=== PATIENT | female | born 1980 | race Caucasian/White ===

== ENCOUNTER 2019-12-25 13:08 | Inpatient (IN) | payer MEDICAID ==
[~2019-12-25] VITALS: Ht 162.6 cm; Wt 58.1 kg
[2019-12-25] MEDS ORDERED: KETOROLAC 30MG/ML VIAL IV STA (15:21)
[2019-12-25] MEDS ORDERED: SODIUM CHLORIDE 0.9% 1,000 ML IV ONE ×2 (15:21)
[2019-12-25 15:44] LABS: BASOPHILS % 0.6 % (0.0-2.0); EOSINOPHILS % 1.7 % (0.0-5.0); HEMATOCRIT. 42.5 % (36.0-48.0); HEMOGLOBIN. 14.6 g/dL (12.0-16.0); LYMPHOCYTES % 26.3 % (20.0-50.0); MEAN CORPUSCULAR HEMOGLOBIN 30.5 pg (28.0-32.0); MEAN CORPUSCULAR VOLUME 88.7 fL (81.0-99.0); MEAN PLATELET VOLUME 10.8 fl (7.4-10.4); MONOCYTES % 8.4 % (2.0-8.0); PLATELET 263 x1000/uL (130-400); RED BLOOD CELL COUNT 4.79 mill/uL (4.2-5.4); RED CELL DISTRIBUTION WIDTH 13.7 % (11.6-14.6)
[2019-12-25 15:51] LABS: CHLORIDE 98 mEq/L (98-107)
[2019-12-25 15:56] LABS: ETHANOL BLOOD < 10 mg/dL
[2019-12-25 16:07] LABS: HCG SCREEN NEGATIVE
[2019-12-25] MEDS ORDERED: KCL 10MEQ/50ML PREMIX 50 ML IV ONE (17:15)
[2019-12-25] MEDS ORDERED: KETOROLAC 15MG/ML VIAL IV PRN (19:15)
[2019-12-25] MEDS ORDERED: NA PHOS,M-B/NA PHOS,DI-BA ENEMA 118ML PR PRN (19:15)
[2019-12-25] MEDS ORDERED: ONDANSETRON HCL 4MG/2ML INJ IV PRN (19:15)
[2019-12-25] MEDS ORDERED: MAGNESIUM/ALUMINUM HYDROXIDE/SIMETHICONE 30ML UDC PO PRN (19:15)
[2019-12-25] MEDS ORDERED: CLONIDINE 0.1MG TABLET PO PRN (19:15)
[2019-12-25] MEDS ORDERED: IPRATROPIUM/ALBUTEROL 0.5-3(2.5)MG/3ML NEB ORI PRN (19:15)
[2019-12-25] MEDS ORDERED: DEXTROSE 50% WATER 50ML SYRINGE IV PRN ×2 (19:15→19:30)
[2019-12-25] MEDS ORDERED: GUAIFENESIN 200MG/10ML SUGAR FREE UDC PO PRN (19:15)
[2019-12-25] MEDS ORDERED: NITROGLYCERIN 0.4MG TABLET SL SL PRN (19:15)
[2019-12-25 19:33] LABS: CLARITY URINE TURBID (CLEAR); COLOR URINE DK YELLOW (YELLOW); KETONES URINE 4+ (NEGATIVE); LEUKOCYTE ESTERASE URINE NEGATIVE (NEGATIVE); NITRITE URINE NEGATIVE (NEGATIVE); OCCULT BLOOD URINE NEGATIVE (NEGATIVE); PROTEIN URINE 2+ (NEGATIVE); SPECIFIC GRAVITY URINE 1.042 (1.005-1.030)
[2019-12-25 19:45] LABS: *AMPHETAMINES SCREEN URINE NEGATIVE (NEGATIVE); *BARBITURATES SCREEN URINE NEGATIVE (NEGATIVE)
[2019-12-25 19:46] LABS: *BENZODIAZEPINES SCREEN URINE NEGATIVE (NEGATIVE); *COCAINE SCREEN URINE NEGATIVE (NEGATIVE); OPIATES URINE SCREEN NEGATIVE (NEGATIVE); PHENCYCLIDINE URINE SCREEN NEGATIVE (NEGATIVE)
[2019-12-25 19:47] LABS: CANNABINOID URINE SCREEN NEGATIVE (NEGATIVE); METHADONE URINE SCREEN NEGATIVE (NEGATIVE)
[2019-12-25] MEDS ORDERED: LEVOFLOXACIN 500MG PREMIX 100 ML IV SCH (20:00)
[2019-12-25] MEDS: BLOOD SUGAR DIAGNOSTIC STRIP TEST SCH (21:00)
[2019-12-25] MEDS: ENOXAPARIN 40MG/0.4ML SYR SUBCUT SCH (21:00)
[2019-12-25] MEDS: INSULIN LISPRO 100 UNITS/ML SUBCUT SCH (21:00)
[2019-12-25] MEDS ORDERED: BLOOD SUGAR DIAGNOSTIC STRIP TEST SCH (21:00)
[2019-12-25] MEDS ORDERED: ZOLPIDEM TARTRATE 5MG TABLET PO PRN (21:00)
[2019-12-25] MEDS: FAMOTIDINE 20MG TABLET PO SCH (21:00)
[2019-12-26 05:20] LABS: CREATINE KINASE 36 IU/L (26-192)
[2019-12-26 05:21] LABS: CREATINE KINASE MB FRACTION < 1.0 ng/mL (0.5-3.6)
[2019-12-26] MEDS: BLOOD SUGAR DIAGNOSTIC STRIP TEST SCH ×4 (06:30→20:44)
[2019-12-26] MEDS: INSULIN LISPRO 100 UNITS/ML SUBCUT SCH ×4 (07:00→20:52)
[2019-12-26] MEDS: FAMOTIDINE 20MG TABLET PO SCH ×2 (09:41→21:43)
[2019-12-26] MEDS: ASPIRIN 81MG EC TABLET PO SCH (09:41)
[2019-12-26 11:45] VITALS: BP 0/0
[2019-12-26 16:00] VITALS: BP 108/67
[2019-12-26] MEDS: LEVOFLOXACIN 500MG PREMIX 100 ML IV SCH (16:49)
[2019-12-26 18:03] VITALS: BP 102/69
[2019-12-26 20:00] VITALS: BP_SYST 102; BP_SYST 83; BP_DIAS 38; BP_DIAS 68
[2019-12-26] MEDS: ENOXAPARIN 40MG/0.4ML SYR SUBCUT SCH (20:53)
[2019-12-27] VITALS: BP 95/66
[2019-12-27 04:00] VITALS: BP 108/72
[2019-12-27 06:14] LABS: CHLORIDE 106 mEq/L (98-107)
[2019-12-27 06:19] LABS: BASOPHILS % 0.7 % (0.0-2.0); EOSINOPHILS % 5.5 % (0.0-5.0); HEMATOCRIT. 37.5 % (36.0-48.0); LYMPHOCYTES % 38.5 % (20.0-50.0); MEAN CORPUSCULAR HEMOGLOBIN 30.3 pg (28.0-32.0); MEAN CORPUSCULAR VOLUME 87.4 fL (81.0-99.0); MONOCYTES % 8.4 % (2.0-8.0); NEUTROPHILS % 46.9 % (40.0-76.0); PLATELET 216 x1000/uL (130-400); RED BLOOD CELL COUNT 4.29 mill/uL (4.2-5.4); RED CELL DISTRIBUTION WIDTH 13.7 % (11.6-14.6)
[2019-12-27 06:23] LABS: PHOSPHORUS 3.1 mg/dL (2.5-4.9)
[2019-12-27] MEDS: BLOOD SUGAR DIAGNOSTIC STRIP TEST SCH ×4 (06:27→21:16)
[2019-12-27] MEDS: INSULIN LISPRO 100 UNITS/ML SUBCUT SCH ×4 (06:42→21:17)
[2019-12-27 08:00] VITALS: BP 112/74
[2019-12-27] MEDS: POTASSIUM CHLORIDE 20MEQ/PACKET PO SCH ×2 (08:00→09:46)
[2019-12-27] MEDS: ASPIRIN 81MG EC TABLET PO SCH (09:46)
[2019-12-27] MEDS: FAMOTIDINE 20MG TABLET PO SCH ×2 (09:46→21:16)
[2019-12-27] MEDS: LEVOFLOXACIN 500MG PREMIX 100 ML IV SCH (10:04)
[2019-12-27] MEDS ORDERED: POTASSIUM CHLORIDE 20MEQ TABLET SR PO NR (10:30)
[2019-12-27 12:00] VITALS: BP 104/73
[2019-12-27 16:00] VITALS: BP 90/52
[2019-12-27 20:00] VITALS: BP 109/43
[2019-12-27] MEDS: ENOXAPARIN 40MG/0.4ML SYR SUBCUT SCH (21:16)
[2019-12-28] VITALS: BP 106/75
[2019-12-28 04:00] VITALS: BP 109/52
[2019-12-28] MEDS: INSULIN LISPRO 100 UNITS/ML SUBCUT SCH ×4 (06:10→22:11)
[2019-12-28] MEDS: BLOOD SUGAR DIAGNOSTIC STRIP TEST SCH ×4 (06:10→21:00)
[2019-12-28] MEDS: FAMOTIDINE 20MG TABLET PO SCH ×2 (08:21→22:04)
[2019-12-28] MEDS: ASPIRIN 81MG EC TABLET PO SCH (08:21)
[2019-12-28] MEDS: LEVOFLOXACIN 500MG PREMIX 100 ML IV SCH (11:00)
[2019-12-28 16:00] VITALS: BP 107/64
[2019-12-28 20:00] VITALS: BP 118/77
[2019-12-28] MEDS: ENOXAPARIN 40MG/0.4ML SYR SUBCUT SCH (22:03)
[2019-12-29] VITALS: BP 96/62
[2019-12-29 04:00] VITALS: BP 93/66
[2019-12-29] MEDS: BLOOD SUGAR DIAGNOSTIC STRIP TEST SCH ×4 (06:39→21:12)
[2019-12-29] MEDS: INSULIN LISPRO 100 UNITS/ML SUBCUT SCH ×4 (06:48→21:14)
[2019-12-29 08:00] VITALS: BP 108/68
[2019-12-29] MEDS: ASPIRIN 81MG EC TABLET PO SCH (08:44)
[2019-12-29] MEDS: FAMOTIDINE 20MG TABLET PO SCH ×2 (08:44→21:15)
[2019-12-29] MEDS ORDERED: LEVOFLOXACIN 500MG TABLET PO SCH (11:00)
[2019-12-29 12:00] VITALS: BP 107/64
[2019-12-29 16:00] VITALS: BP 106/77
[2019-12-29] MEDS: ACETAMINOPHEN 325MG TABLET PO PRN (17:43)
[2019-12-29 20:21] VITALS: BP 101/59
[2019-12-29] MEDS: ENOXAPARIN 40MG/0.4ML SYR SUBCUT SCH (21:14)
[2019-12-30] VITALS (7 sets, daily range): BP systolic 100–114; BP diastolic 62–73
[2019-12-30] MEDS: ACETAMINOPHEN 325MG TABLET PO PRN (04:01)
[2019-12-30] MEDS: BLOOD SUGAR DIAGNOSTIC STRIP TEST SCH ×4 (06:00→21:20)
[2019-12-30] MEDS: INSULIN LISPRO 100 UNITS/ML SUBCUT SCH ×3 (06:32→16:40)
[2019-12-30] MEDS ORDERED: HALOPERIDOL LACTATE 5MG/ML VIAL IM PRN (08:00)
[2019-12-30] MEDS: FAMOTIDINE 20MG TABLET PO SCH ×2 (09:00→21:19)
[2019-12-30] MEDS: ASPIRIN 81MG EC TABLET PO SCH (09:00)
[2019-12-30] MEDS ORDERED: INSULIN LISPRO 100 UNITS/ML SUBCUT SCH (21:00)
[2019-12-30] MEDS: ENOXAPARIN 40MG/0.4ML SYR SUBCUT SCH (21:19)
== END 2019-12-30 22:48 | DRG 420 ==
LOC: ER 13:19 → MICUSO 17:49 → EDBEDREQ 17:53 → EDBEDREQTM 17:53 → 5WST 12-26 12:39
PROVIDERS: ADMIT Internal Medicine; ATTEND Internal Medicine
DX: E11.65 Type 2 diabetes mellitus with hyperglycemia (principal); R10.9 Unspecified abdominal pain; E87.1 Hypo-osmolality and hyponatremia; R45.851 Suicidal ideations; E87.6 Hypokalemia; Z20.828 Contact with and (suspected) exposure to other viral communicable diseases; Z79.4 Long term (current) use of insulin; Z91.83 Wandering in diseases classified elsewhere; Z79.899 Other long term (current) drug therapy
CPT/HCPCS: 36415; 74176; 76705; 80053; 80061; 80305; 80307; 80320; 80329; 81003; 82550; 82553; 82962; 83036; 83735; 84100; 84132; 84484; 84703; 85025; 93005; 93306; 93970; 99285; J1630; J1650; J1815; J1885; J1956; J3480; J7030; G0480; U0003-CS

== ENCOUNTER 2020-09-13 12:39 | Emergency (ER) | payer SELFPAY ==
[~2020-09-13] VITALS: Ht 160 cm; Wt 63.0 kg
[2020-09-13] MEDS ORDERED: SODIUM CHLORIDE 0.9% 1,000 ML IV ONE (13:15)
[2020-09-13 15:15] LABS: BASOPHILS % 0.7 % (0.0-2.0); CHLORIDE 102 mEq/L (98-107); EOSINOPHILS % 2.6 % (0.0-5.0); HEMATOCRIT. 39.7 % (36.0-48.0); HEMOGLOBIN. 13.6 g/dL (12.0-16.0); LYMPHOCYTES % 31.7 % (20.0-50.0); MEAN CORPUSCULAR HEMOGLOBIN 30.1 pg (28.0-32.0); MEAN CORPUSCULAR VOLUME 87.6 fL (81.0-99.0); MEAN PLATELET VOLUME 9.2 fl (7.4-10.4); MONOCYTES % 5.8 % (2.0-8.0); NEUTROPHILS % 59.2 % (40.0-76.0); PLATELET 316 x1000/uL (130-400); RED BLOOD CELL COUNT 4.53 mill/uL (4.2-5.4); RED CELL DISTRIBUTION WIDTH 13.3 % (11.6-14.6)
[2020-09-13 15:21] LABS: ETHANOL BLOOD < 10 mg/dL
[2020-09-13 15:43] LABS: HCG SCREEN NEGATIVE
[2020-09-13 16:00] VITALS: BP 119/86
[2020-09-13 16:39] LABS: CLARITY URINE CLOUDY (CLEAR); COLOR URINE YELLOW (YELLOW); KETONES URINE NEGATIVE (NEGATIVE); LEUKOCYTE ESTERASE URINE NEGATIVE (NEGATIVE); NITRITE URINE POSITIVE (NEGATIVE); OCCULT BLOOD URINE NEGATIVE (NEGATIVE); PH URINE 6.5 (4.5-8.0); PROTEIN URINE NEGATIVE (NEGATIVE); SPECIFIC GRAVITY URINE 1.025 (1.005-1.030); UROBILINOGEN URINE 0.2 E.U./dL (0.2-1.0)
[2020-09-13 16:49] LABS: *AMPHETAMINES SCREEN URINE NEGATIVE (NEGATIVE); *BARBITURATES SCREEN URINE NEGATIVE (NEGATIVE)
[2020-09-13 16:50] LABS: *BENZODIAZEPINES SCREEN URINE NEGATIVE (NEGATIVE); *COCAINE SCREEN URINE NEGATIVE (NEGATIVE); METHADONE URINE SCREEN NEGATIVE (NEGATIVE); OPIATES URINE SCREEN NEGATIVE (NEGATIVE); PHENCYCLIDINE URINE SCREEN NEGATIVE (NEGATIVE)
[2020-09-13 16:51] LABS: CANNABINOID URINE SCREEN NEGATIVE (NEGATIVE)
[2020-09-13] MEDS ORDERED: NITR-87 MT (16:54)
== END 2020-09-13 18:14 | disposition home or self-care (01) ==
LOC: ER 13:24
DX: F22 Delusional disorders (principal); N63.0 Unspecified lump in unspecified breast; E11.9 Type 2 diabetes mellitus without complications
CPT/HCPCS: 36415; 70450; 71045; 76641; 80053; 80305; 80307; 80320; 80329; 81003; 84443; 84703; 85025; 93005; 96360; 99285; J7030; G0480

== ENCOUNTER 2021-09-17 20:52 | Inpatient (IN) | payer MEDICAID, OTHER ==
[~2021-09-17] VITALS: Ht 170.2 cm; Wt 58.5 kg
[~2021-09-17 20:52] MED LIST: NITR-87 MT
[2021-09-17 21:50] LABS: BASOPHILS % 0.5 % (0.0-2.0); EOSINOPHILS % 1.7 % (0.0-5.0); HEMATOCRIT. 38.7 % (36.0-48.0); HEMOGLOBIN. 13.1 g/dL (12.0-16.0); LYMPHOCYTES % 24.8 % (20.0-50.0); MEAN CORPUSCULAR HEMOGLOBIN 29.4 pg (28.0-32.0); MEAN CORPUSCULAR VOLUME 86.6 fL (81.0-99.0); MEAN PLATELET VOLUME 8.8 fl (7.4-10.4); MONOCYTES % 5.1 % (2.0-8.0); NEUTROPHILS % 67.9 % (40.0-76.0); PLATELET 329 x1000/uL (130-400); RED BLOOD CELL COUNT 4.46 mill/uL (4.2-5.4); RED CELL DISTRIBUTION WIDTH 13.3 % (11.6-14.6)
[2021-09-17 21:57] LABS: CHLORIDE 104 mEq/L (98-107)
[2021-09-17 22:01] LABS: ETHANOL BLOOD < 10 mg/dL
[2021-09-17 22:05] LABS: C REACTIVE PROTEIN QUANT 7.5 mg/L (0.0-3.0); CREATINE KINASE 28 IU/L (26-192)
[2021-09-17 22:06] LABS: BETA HYDROXYBUTYRATE 0.2 mMol/L (0.0-0.3)
[2021-09-17 22:24] LABS: CLARITY URINE CLEAR (CLEAR); COLOR URINE YELLOW (YELLOW); KETONES URINE TRACE (NEGATIVE); LEUKOCYTE ESTERASE URINE NEGATIVE (NEGATIVE); NITRITE URINE NEGATIVE (NEGATIVE); OCCULT BLOOD URINE 2+ (NEGATIVE); PH URINE 5.5 (4.5-8.0); PROTEIN URINE NEGATIVE (NEGATIVE); UROBILINOGEN URINE 0.2 E.U./dL (0.2-1.0)
[2021-09-17 22:37] LABS: *AMPHETAMINES SCREEN URINE NEGATIVE (NEGATIVE); *BARBITURATES SCREEN URINE NEGATIVE (NEGATIVE); *BENZODIAZEPINES SCREEN URINE NEGATIVE (NEGATIVE); *COCAINE SCREEN URINE NEGATIVE (NEGATIVE); METHADONE URINE SCREEN NEGATIVE (NEGATIVE); OPIATES URINE SCREEN NEGATIVE (NEGATIVE)
[2021-09-17 22:38] LABS: CANNABINOID URINE SCREEN NEGATIVE (NEGATIVE); PHENCYCLIDINE URINE SCREEN NEGATIVE (NEGATIVE)
[2021-09-17] MEDS ORDERED: CEPHALEXIN 250MG CAPSULE PO ONE (22:45)
[2021-09-17] MEDS ORDERED: INSULIN REGULAR (HUMULIN R) 300UNITS/3ML VIAL SUBCUT SCH (23:30)
[2021-09-18] MEDS: CEPHALEXIN 250MG CAPSULE PO SCH ×4 (00:07→21:00)
[2021-09-18] MEDS ORDERED: ARIPIPRAZOLE 5MG TABLET PO NR (11:40)
[2021-09-19] MEDS: CEPHALEXIN 250MG CAPSULE PO SCH ×3 (13:00→21:49)
[2021-09-19] MEDS ORDERED: INSULIN LISPRO 100 UNITS/ML SUBCUT ONE (14:30)
[2021-09-19] MEDS ORDERED: DEXTROSE 50% WATER 50ML SYRINGE IV PRN ×2 (15:00→16:30)
[2021-09-19] MEDS ORDERED: IPRATROPIUM/ALBUTEROL 0.5-3(2.5)MG/3ML NEB HHN PRN (16:30)
[2021-09-19] MEDS ORDERED: DOCUSATE SODIUM 100MG CAPSULE PO PRN (16:30)
[2021-09-19] MEDS ORDERED: GUAIFENESIN 200MG/10ML SUGAR FREE UDC PO PRN (16:30)
[2021-09-19] MEDS ORDERED: CLONIDINE 0.1MG TABLET PO PRN (16:30)
[2021-09-19] MEDS ORDERED: ONDANSETRON HCL 4MG/2ML INJ IV PRN (16:30)
[2021-09-19] MEDS ORDERED: ACETAMINOPHEN 325MG TABLET PO PRN (16:30)
[2021-09-19] MEDS ORDERED: BLOOD SUGAR DIAGNOSTIC STRIP TEST SCH (17:00)
[2021-09-19] MEDS ORDERED: INSULIN LISPRO 100 UNITS/ML SUBCUT SCH (18:20)
[2021-09-19] MEDS: INSULIN LISPRO 100 UNITS/ML SUBCUT SCH ×2 (18:20→21:44)
[2021-09-19] MEDS: BLOOD SUGAR DIAGNOSTIC STRIP TEST SCH (21:34)
[2021-09-19] MEDS: ENOXAPARIN 40MG/0.4ML SYR SUBCUT SCH (21:48)
[2021-09-19] MEDS ORDERED: INSULIN GLARGINE 100 UNITS/ML SUBCUT SCH (22:00)
[2021-09-19] MEDS: INSULIN GLARGINE 100 UNITS/ML SUBCUT SCH (22:30)
[2021-09-20] MEDS: BLOOD SUGAR DIAGNOSTIC STRIP TEST SCH ×4 (08:00→21:00)
[2021-09-20] MEDS: INSULIN LISPRO 100 UNITS/ML SUBCUT SCH ×4 (08:18→21:00)
[2021-09-20] MEDS: CEPHALEXIN 250MG CAPSULE PO SCH ×3 (09:33→17:52)
[2021-09-20 10:38] LABS: BASOPHILS % 0.9 % (0.0-2.0); EOSINOPHILS % 3.6 % (0.0-5.0); HEMATOCRIT. 38.7 % (36.0-48.0); HEMOGLOBIN. 13.1 g/dL (12.0-16.0); LYMPHOCYTES % 37.2 % (20.0-50.0); MEAN CORPUSCULAR HEMOGLOBIN 29.2 pg (28.0-32.0); MEAN CORPUSCULAR VOLUME 86.6 fL (81.0-99.0); MEAN PLATELET VOLUME 8.2 fl (7.4-10.4); MONOCYTES % 7.5 % (2.0-8.0); NEUTROPHILS % 50.8 % (40.0-76.0); PLATELET 307 x1000/uL (130-400); RED BLOOD CELL COUNT 4.48 mill/uL (4.2-5.4); RED CELL DISTRIBUTION WIDTH 13.6 % (11.6-14.6)
[2021-09-20 10:48] LABS: CHLORIDE 105 mEq/L (98-107)
[2021-09-20] MEDS: ENOXAPARIN 40MG/0.4ML SYR SUBCUT SCH (17:00)
[2021-09-20] MEDS: INSULIN GLARGINE 100 UNITS/ML SUBCUT SCH (22:00)
[2021-09-21 04:52] LABS: EOSINOPHILS % 3.8 % (0.0-5.0); HEMATOCRIT. 39.1 % (36.0-48.0); HEMOGLOBIN. 13.4 g/dL (12.0-16.0); LYMPHOCYTES % 41.3 % (20.0-50.0); MEAN CORPUSCULAR HEMOGLOBIN 29.6 pg (28.0-32.0); MEAN CORPUSCULAR VOLUME 86.2 fL (81.0-99.0); MEAN PLATELET VOLUME 8.2 fl (7.4-10.4); MONOCYTES % 8.1 % (2.0-8.0); NEUTROPHILS % 45.8 % (40.0-76.0); PLATELET 328 x1000/uL (130-400); RED BLOOD CELL COUNT 4.54 mill/uL (4.2-5.4); RED CELL DISTRIBUTION WIDTH 13.3 % (11.6-14.6)
[2021-09-21 05:03] LABS: CHLORIDE 106 mEq/L (98-107)
[2021-09-21] MEDS: BLOOD SUGAR DIAGNOSTIC STRIP TEST SCH ×4 (06:35→21:20)
[2021-09-21] MEDS: INSULIN LISPRO 100 UNITS/ML SUBCUT SCH ×4 (07:26→21:20)
[2021-09-21] MEDS: CEPHALEXIN 250MG CAPSULE PO SCH ×3 (10:43→17:27)
[2021-09-21] MEDS: CITALOPRAM HYDROBROMIDE 10MG TABLET PO SCH (17:27)
[2021-09-21] MEDS: ENOXAPARIN 40MG/0.4ML SYR SUBCUT SCH (17:27)
[2021-09-21] MEDS ORDERED: INSULIN GLARGINE 100 UNITS/ML SUBCUT SCH (22:00)
[2021-09-21 22:42] VITALS: BP 116/82
[2021-09-22] VITALS: BP 118/77
[2021-09-22 04:00] VITALS: BP 116/77
[2021-09-22] MEDS: BLOOD SUGAR DIAGNOSTIC STRIP TEST SCH ×4 (06:12→21:00)
[2021-09-22] MEDS: INSULIN LISPRO 100 UNITS/ML SUBCUT SCH ×4 (06:16→22:13)
[2021-09-22 08:19] VITALS: BP 109/76
[2021-09-22] MEDS: CITALOPRAM HYDROBROMIDE 10MG TABLET PO SCH (09:39)
[2021-09-22 11:44] VITALS: BP 115/74
[2021-09-22 15:32] VITALS: BP 115/70
[2021-09-22] MEDS: ENOXAPARIN 40MG/0.4ML SYR SUBCUT SCH (17:12)
[2021-09-22 20:00] VITALS: BP 117/76
[2021-09-22] MEDS ORDERED: INSULIN GLARGINE 100 UNITS/ML SUBCUT SCH (22:00)
[2021-09-23] VITALS: BP 112/74
[2021-09-23 04:00] VITALS: BP 116/82
[2021-09-23] MEDS: BLOOD SUGAR DIAGNOSTIC STRIP TEST SCH ×2 (06:08→11:21)
[2021-09-23] MEDS: INSULIN LISPRO 100 UNITS/ML SUBCUT SCH ×4 (06:12→12:38)
[2021-09-23 07:08] LABS: CLARITY URINE CLEAR (CLEAR); COLOR URINE YELLOW (YELLOW); KETONES URINE NEGATIVE (NEGATIVE); LEUKOCYTE ESTERASE URINE NEGATIVE (NEGATIVE); NITRITE URINE NEGATIVE (NEGATIVE); OCCULT BLOOD URINE TRACE (NEGATIVE); PROTEIN URINE NEGATIVE (NEGATIVE); SPECIFIC GRAVITY URINE 1.017 (1.005-1.030); UROBILINOGEN URINE 0.2 E.U./dL (0.2-1.0)
[2021-09-23 07:38] VITALS: BP 115/80
[2021-09-23] MEDS: CITALOPRAM HYDROBROMIDE 10MG TABLET PO SCH (08:22)
[2021-09-23 11:48] VITALS: BP 108/66
[2021-09-23] MEDS ORDERED: CITA10TA16 PO (13:27)
[2021-09-23] MEDS ORDERED: CEPH500C2 MT (13:27)
[2021-09-23] MEDS ORDERED: REPA2TAB8 MT (13:27)
[2021-09-23] MEDS ORDERED: EMPA25TA MT (13:27)
[2021-09-23] MEDS ORDERED: METF-907 MT (13:27)
[2021-09-23] MEDS ORDERED: LANTUSUD SUBCUT (13:28)
[2021-09-23 13:37] VITALS: BP 108/66
== END 2021-09-23 14:38 | disposition home or self-care (01) | DRG 382 ==
LOC: ER 20:52 → CANBEDREQ 09-18 07:28 → MICUSO 09-19 15:30 → 7EST 09-21 21:27
PROVIDERS: ADMIT Internal Medicine; ATTEND Internal Medicine
DX: C50.912 Malignant neoplasm of unspecified site of left female breast (principal); F22 Delusional disorders; E11.65 Type 2 diabetes mellitus with hyperglycemia; E78.00 Pure hypercholesterolemia, unspecified; E78.5 Hyperlipidemia, unspecified; Z20.822 Contact with and (suspected) exposure to COVID-19; I10 Essential (primary) hypertension; F29 Unspecified psychosis not due to a substance or known physiological condition; Z98.891 History of uterine scar from previous surgery; Z88.8 Allergy status to other drugs, medicaments and biological substances
CPT/HCPCS: 36415; 71045; 74018; 76641; 80048; 80053; 80305; 80320; 81003; 82010; 82550; 82962; 83036; 83605; 83880; 84145; 84484; 85025; 86140; 93005; 96372; 99285; C9803; J1650; J1815; U0003; U0005; G0480